=== PATIENT | female | born 1945 | race Caucasian/White ===

== ENCOUNTER → 2016-06-24 | Outpatient (CLI) | payer MEDICARE | LOC: SLEEP-COR 21:30 | DX: G47.33 Obstructive sleep apnea (adult) (pediatric) (principal); R06.00 Dyspnea, unspecified; R94.2 Abnormal results of pulmonary function studies | CPT/HCPCS: 94060; 94729; 95810 ==

== ENCOUNTER → 2016-09-20 | Outpatient (CLI) | payer MEDICARE | LOC: SLEEP-COR 21:30 | DX: G47.33 Obstructive sleep apnea (adult) (pediatric) (principal) | CPT/HCPCS: 95811 ==

== ENCOUNTER → 2020-11-16 | Outpatient (CLI) | payer MEDICARE ==
[~2020-11-16] MED LIST: DOCUSATE SODIU100 MG PO; ECOTRIN81 MG PO; GLUCOPHAGE XR750 MG PO; IMDUR ER TAB 6060 MG PO; LIPITOR TAB 2020 MG PO; LOPRESSOR 25 MG25 MG PO; LOVENOX SY30 MG/0.3 SQ; METFORMIN HCL750 MG PO; NITROSTAT0.4 MG SL; NORCO 10-325 T1 EACH PO; PLAVIX 75 MG TA75 MG PO; PRINIVIL20 MG PO; RANEXA500 MG PO; VITAMIN D2000 UNIT PO; VOLTAREN100 GM TP; ZANTAC 150 MG150 MG PO; ZETIA 10 MG TAB10 MG PO
== END ==
LOC: KOH-I 15:41
DX: R91.8 Other nonspecific abnormal finding of lung field (principal); E04.9 Nontoxic goiter, unspecified; E04.2 Nontoxic multinodular goiter; E07.9 Disorder of thyroid, unspecified
CPT/HCPCS: 71250; 76536